=== PATIENT | female | born 1940 | race Caucasian/White ===

== ENCOUNTER 2018-11-26 17:31 | Emergency (ER) | payer MEDICARE, BC ==
[~2018-11-26] VITALS: Ht 162.6 cm; Wt 72.7 kg
[~2018-11-26 17:31] MED LIST: ASPIRIN81 MG PO; PLAVIX75 MG PO; PRAVACHOL20 MG PO
[2018-11-26 17:42] VITALS: Ht 162.6 cm; Wt 72.7 kg
[2018-11-26] MEDS ORDERED: TIROSINT75 MCG PO (17:46)
[2018-11-26] MEDS ORDERED: NAPROSYN500 MG PO (17:47)
[2018-11-26] MEDS ORDERED: [UNRECOGNIZED DRUG - OTHER] (17:47)
[2018-11-26 18:14] LABS: BASOPHILS 0.3 % (0-2); HEMATOCRIT 38.9 % (36.0-48.0); HEMOGLOBIN 13.4 g/dL (12-16); IMMATURE GRANULOCYTES 0.1 % (0-5); MCH 30.2 pg (26.0-34.0); MCHC 34.4 g/dL (31.0-37.0); MCV 87.6 fL (80.0-100.0); MEAN PLATELET VOLUME 8.8 fL (7.4-10.4); NEUTROPHILS 57.6 % (40-80); PLATELET COUNT 337 10x3/uL (130-400); RBC 4.44 10x6/uL (4.00-5.40); RDW 12.8 % (11.5-14.5)
[2018-11-26 18:25] LABS: INR 0.98 (0.85-1.17); PROTIME 12.5 SECONDS (11.6-15.0)
[2018-11-26 18:26] LABS: APTT 31.1 SECONDS (22.8-39.4)
[2018-11-26 18:30] LABS: ALKALINE PHOSPHATASE 59 U/L (46-116); ALT (SGPT) 15 U/L (10-68); CALC OSMOLALITY 262 mosm/kg (275-300); CALCIUM 10.6 mg/dL (8.5-10.1); CARBON DIOXIDE 26.8 mmol/L (21.0-32.0); CHLORIDE - SERUM 95 mmol/L (98-107); CREATININE - SERUM 0.8 mg/dL (0.6-1.3); GLUCOSE 104 mg/dL (74-106); POTASSIUM - SERUM 3.7 mmol/L (3.5-5.1); PROTEIN - SERUM 8.1 g/dL (6.4-8.2); SODIUM 132 mmol/L (136-145); UREA NITROGEN 7 mg/dL (7-18); eGFR NON AFRICAN AMERICAN 74 mL/min (90-120)
[2018-11-26 18:42] LABS: CKMB 0.5 U/L (0.0-3.6); CREATINE KINASE 71 UL (21-215); PRO BNP 172 pg/mL (0-450)
[2018-11-26 18:44] LABS: TROPONIN-I < 0.017 ng/mL (0.000-0.060)
[2018-11-26 19:23] LABS: APPEARANCE CLEAR (CLEAR); BILIRUBIN NEGATIVE (NEGATIVE); COLOR STRAW (YELLOW); GLUCOSE NEGATIVE (NEGATIVE); KETONE NEGATIVE (NEGATIVE); NITRITE NEGATIVE (NEGATIVE); PROTEIN NEGATIVE (NEGATIVE); SPECIFIC GRAVITY 1.015 (1.005-1.020); UROBILINOGEN NORMAL (NORMAL)
[2018-11-26 19:25] LABS: BACTERIA FEW /hpf (NONE SEEN); RED CELLS - URINE 0-5 /hpf (0-5); WHITE CELLS - URINE OCC /hpf (0-5)
[2018-11-26] MEDS ORDERED: DOXYCYCLINE HY100 M2 PO (21:11)
[2018-11-26 22:18] VITALS: BP 158/81
== END 2018-11-26 22:18 | disposition home or self-care (01) ==
LOC: D.ER 17:31
PROVIDERS: Family Medicine
DX: R51 Headache (principal); I25.10 Atherosclerotic heart disease of native coronary artery without angina pectoris; E87.1 Hypo-osmolality and hyponatremia; R05 Cough; E78.5 Hyperlipidemia, unspecified